=== PATIENT | male | born 1950 | race Hispanic/Latino ===

== ENCOUNTER 2020-07-27 10:00 | Observation (INO) | payer MEDICARE ==
[~2020-07-27] VITALS: Ht 172.7 cm; Wt 70.3 kg
[2020-07-30 12:28] LABS: BASOPHILS % (AUTO) 0.6 % (0.0-5.0); EOSINOPHILS % (AUTO) 2.7 % (0.0-8.0); HEMATOCRIT 45.2 % (42-54); MEAN CORPUSCULAR HEMOGLOBIN 30.4 pg (27.0-33.0); MEAN CORPUSCULAR HGB CONC 32.3 g/dL (32.0-36.0); MONOCYTES % (AUTO) 6.3 % (3.0-13.0); NEUTROPHILS % (AUTO) 77.8 % (40.0-77.0); PLATELET COUNT (AUTO) 179 K/uL (130-400); RED BLOOD CELL COUNT(AUTO) 4.81 MIL/uL (4.50-6.20); RED CELL DISTRIBUTION WIDTH 12.5 % (11.0-15.5); WHITE BLOOD COUNT (AUTO) 5.3 K/uL (4.8-10.8)
[2020-08-03 10:11] VITALS: BP 134/85
[2020-08-03] MEDS ORDERED: MECL-226 PO (10:27)
[2020-08-03] MEDS ORDERED: [UNRECOGNIZED DRUG - CODE] TD (10:27)
[2020-08-03] MEDS ORDERED: GABA300S PO (10:27)
[2020-08-03] MEDS ORDERED: FLUD0.1T2 PO (10:27)
[2020-08-03] MEDS ORDERED: ALFU10TA9 PO (10:27)
[2020-08-03] MEDS ORDERED: SYMBICORT IH (10:27)
[2020-08-03] MEDS ORDERED: MELO-106 PO (10:27)
[2020-08-03] MEDS ORDERED: TRAZ-187 PO (10:27)
[2020-08-03] MEDS ORDERED: NAPR-1023 PO (10:27)
[2020-08-03] MEDS ORDERED: ALBUTEROL IH (10:28)
[2020-08-04] VITALS (21 sets, daily range): BP systolic 108–141; BP diastolic 69–96
[2020-08-04] MEDS ORDERED: CEFAZOLIN SODIUM 1 GM VIAL ONE ×2 (06:43→12:51)
[2020-08-04] MEDS ORDERED: THROMBIN-JMI 20000 UNIT KIT TP ONE (06:43)
[2020-08-04] MEDS ORDERED: MORPHINE PF 100MG/10ML AMP IV ONE (06:43)
[2020-08-04] MEDS ORDERED: LIDOCAINE PF 100MG/5ML (2%) SYRINGE 5ML ONE (06:47)
[2020-08-04] MEDS ORDERED: SUCCINYLCHOLINE CHLORIDE 20 MG/ML 10 ML VIAL ONE (06:47)
[2020-08-04] MEDS ORDERED: DEXAMETHASONE SOD PHOSPHATE 10MG/ML 1ML VIAL ONE ×2 (06:48→07:47)
[2020-08-04] MEDS ORDERED: GLYCOPYRROLATE 1 MG/5 ML SYRINGE ONE (06:48)
[2020-08-04] MEDS ORDERED: MIDAZOLAM HCL 1 MG/ML 2ML VIAL ONE (06:48)
[2020-08-04] MEDS ORDERED: PROPOFOL 10 MG/ML 20ML VIAL IV ONE (06:48)
[2020-08-04] MEDS ORDERED: FENTANYL CITRATE PF 50 MCG/1 ML 2ML VIAL ONE ×2 (06:48→09:34)
[2020-08-04] MEDS ORDERED: ONDANSETRON 4MG INJ ONE ×2 (06:48→09:04)
[2020-08-04] MEDS ORDERED: NEOSTIGMINE 5MG/5ML SYR IV ONE (06:48)
[2020-08-04] MEDS ORDERED: ROCURONIUM 10MG/1ML SYR 10 MG/ML ML ONE (06:49)
[2020-08-04] MEDS ORDERED: LACTATED RINGERS 1000ML 1,000 ML IV ONE (07:02)
[2020-08-04] MEDS: CEFAZOLIN SODIUM 1 GM VIAL ONE ×2 (07:08→08:45)
[2020-08-04] MEDS: BUPIVACAINE/EPI/PF 0.25% 30ML VIAL IJ SCH ×2 (07:15→09:05)
[2020-08-04] MEDS ORDERED: EPHEDRINE SULFATE 50 MG/ML AMPULE ONE (08:48)
[2020-08-04] MEDS ORDERED: ARTIFICIAL TEARS 3.5 GM OINTMENT ONE (10:58)
[2020-08-04] MEDS ORDERED: ALBUMIN (HUMAN) 5% 250 ML IV ONE ×2 (11:51→12:10)
[2020-08-04] MEDS ORDERED: PHENYLEPHRINE HCL 10 MG/ML 1ML VIAL IV ONE ×2 (11:58→12:10)
[2020-08-04] MEDS ORDERED: FLUDROCORTISONE ACETATE 0.1 MG TABLET PO PRN (13:30)
[2020-08-04] MEDS: DEXAMETHASONE SOD PHOSPHATE 4 MG/ML 1ML VIAL IVP SCH ×2 (13:30→19:41)
[2020-08-04] MEDS ORDERED: HYDROCODONE/ACETAMINOPHEN 5/325 MG TAB PO PRN (13:30)
[2020-08-04] MEDS ORDERED: PROMETHAZINE HCL 25 MG/ML 1ML AMPULE IM PRN (13:30)
[2020-08-04] MEDS ORDERED: NAPROXEN 500 MG TABLET PO PRN (13:30)
[2020-08-04] MEDS: LACTATED RINGERS 1000ML 1,000 ML IV SCH (13:30)
[2020-08-04] MEDS ORDERED: MORPHINE 2 MG SYG IVP PRN (13:30)
[2020-08-04] MEDS ORDERED: MECLIZINE HCL 12.5 MG TABLET PO PRN (13:30)
[2020-08-04] MEDS ORDERED: 0.9%NACL 10ML VIAL IVP PRN (13:30)
[2020-08-04] MEDS ORDERED: ESMOLOL HCL 10 MG/ML 10 ML VIAL ONE (13:53)
[2020-08-04] MEDS ORDERED: MEPERIDINE-PF 25 MG/ML SYG ONE ×2 (13:55→14:04)
[2020-08-04] MEDS: CEFAZOLIN SODIUM 1 GM VIAL IVP SCH ×2 (14:42→20:49)
[2020-08-04] MEDS: ALBUTEROL INHALER 90MCG/INH IH SCH (18:00)
[2020-08-04] MEDS: FLUTICASONE/VILANTEROL 1 EACH BLST.W.DEV IH SCH (19:37)
[2020-08-04] MEDS: GABAPENTIN 300 MG CAPSULE PO SCH (20:49)
[2020-08-04] MEDS ORDERED: TRAZODONE HCL 100 MG TABLET PO SCH (21:00)
[2020-08-04] MEDS ORDERED: ***HM*** (Alfuzosin HCl 10 MG) PO SCH (21:00)
[2020-08-05] MEDS: LACTATED RINGERS 1000ML 1,000 ML IV SCH (02:50)
[2020-08-05 04:04] VITALS: BP 124/76
[2020-08-05] MEDS: CEFAZOLIN SODIUM 1 GM VIAL IVP SCH (04:53)
[2020-08-05] MEDS: DEXAMETHASONE SOD PHOSPHATE 4 MG/ML 1ML VIAL IVP SCH ×2 (04:54→08:47)
[2020-08-05] MEDS: ALBUTEROL INHALER 90MCG/INH IH SCH (06:00)
[2020-08-05 08:00] VITALS: BP 102/53
[2020-08-05] MEDS: GABAPENTIN 300 MG CAPSULE PO SCH (08:47)
[2020-08-05] MEDS ORDERED: TESTOSTERONE TD SCH (09:00)
[2020-08-05] MEDS: FLUTICASONE/VILANTEROL 1 EACH BLST.W.DEV IH SCH (09:00)
[2020-08-05] MEDS ORDERED: MELOXICAM 7.5 MG TABLET PO SCH (09:00)
[2020-08-05 11:16] VITALS: BP 113/77
== END 2020-08-05 19:15 | disposition home or self-care (01) ==
LOC: EDSTATUS 10:00 → DAHIP 08-04 06:06 → 4BH 08-04 14:44
PROVIDERS: ADMIT Neurological Surgery; ATTEND Neurological Surgery
DX: M48.061 Spinal stenosis, lumbar region without neurogenic claudication (principal); Z20.822 Contact with and (suspected) exposure to COVID-19; E78.5 Hyperlipidemia, unspecified; J45.909 Unspecified asthma, uncomplicated
CPT/HCPCS: 36415; 63047; 63048 ×4; 72020; 80048; 85025; 88304; 88311; 96361; 96374; 96375; 96376; A4215; A4221; A4222; A4223; A4344; A4649 ×3; A4663; A6260; G0378 ×30; J0330; J0690 ×5; J1100 ×5; J2001; J2175 ×2; J2250; J2274; J2370 ×2; J2405 ×2; J2704; J2710; J3010 ×2; J3490 ×4; J7030; J7120 ×2; P9045 ×2; U0003